=== PATIENT | female | born 1985 | race Hispanic/Latino ===

== ENCOUNTER 2023-08-23 05:51 | Emergency (ER) | payer BC ==
[2023-08-23] MEDS ORDERED: Morphine 4 MG/ML VIAL ONE (06:28)
[2023-08-23] MEDS ORDERED: Ondansetron PF 4 MG/2 ML Vial ONE ×3 (06:28→11:59)
[2023-08-23 06:37] LABS: #Basophils 0.1 thou/uL (0.0-0.2); #Eosinphils 0.1 thou/uL (0.0-0.7); #Monocytes 0.5 thou/uL (0.11-0.59); #Neutrophils 5.3 thou/uL (1.40-6.50); %Basophils 0.7 % (0.0-1.0); %Eosinophils 0.9 % (0.0-10.0); %Lymphocytes 26.1 % (21.0-51.0); %Monocytes 6.3 % (0.0-10.0); %Neutrophils 65.9 % (42.0-75.0); Hematocrit 35.4 % (36.0-47.0); Hemoglobin 9.9 g/dL (12.0-16.0); Mean Corpuscular Hemoglobin 19.5 pg (27.0-31.0); Mean Corpuscular Volume 69.7 fl (78.0-98.0); Mean Platelet Volume 11.1 fL (7.4-10.4); Platelet Count 166 10x3/uL (130-400); RBC Distribution Width 17.1 % (11.5-14.5); Red Blood Cell (RBC) Count 5.08 mill/uL (4.20-5.40); White Blood Cell (WBC) Count 8.1 10x3/uL (4.8-10.8)
[2023-08-23 06:44] LABS: BHCG - Serum Negative (NEGATIVE); Pregs Control Background? CLEAR/WHITE (CLR/WHITE); Pregs Control Bar Appear? YES (CONTROL BAR)
[2023-08-23 07:04] LABS: ALT (SGPT) 34 U/L (8-55); AST (SGOT) 102 U/L (5-34); Albumin 3.9 g/dL (3.5-5.0); Alkaline Phosphatase 127 U/L (40-110); BUN (Urea Nitrogen) 18 mg/dL (7.0-18.7); Bilirubin, Total 0.9 mg/dL (0.2-1.2); Calc. Creatinine Clearance 0 mL/min (70-130); Carbon Dioxide 27 mmol/L (22-29); Estimated GFR 113; Globulin 3.3 g/dL (2.4-3.5); Glucose 84 mg/dL (70-105); Lipase 30 U/L (8-78); Protein, Total 7.2 g/dL (6.0-8.3)
[2023-08-23 07:06] LABS: Troponin I Less than 0.010 ng/mL (< 0.028)
[2023-08-23 07:14] LABS: Anion Gap 10 mmol/L (10-20); Chloride 107 mmol/L (98-107); Potassium 3.3 mmol/L (3.5-5.1); Sodium 141 mmol/L (136-145)
[2023-08-23 07:21] LABS: CellaVision Operator ID LAB.NR; Hypochromia MODERATE=16-30 cells HPF (0-5); Platelet Adequacy Comment Platelets Normal; Polychromasia SLIGHT = 2-3 cells HPF (0-2)
[2023-08-23] MEDS ORDERED: Sodium Chloride 0.9% 100 ML ONE (07:58)
[2023-08-23] MEDS ORDERED: Piperacillin/Tazobactam 3.375 GM VIAL ONE (07:58)
[2023-08-23] MEDS ORDERED: Bupivacaine 0.25% HCL 30 ML VIAL ONE ×2 (10:56→11:38)
[2023-08-23] MEDS ORDERED: EPINEPHrine 1 MG/ML VIAL ONE ×2 (10:56→11:37)
[2023-08-23] MEDS ORDERED: PROPOFOL 0 ML ONE (11:02)
[2023-08-23] MEDS ORDERED: fentaNYL PF 100 MCG/2 ML SYRINGE ONE (11:02)
[2023-08-23] MEDS ORDERED: Lidocaine 1% PF 5 ML VIAL ONE ×2 (11:05→11:17)
[2023-08-23] MEDS ORDERED: Rocuronium Bromide 10 MG/ML (10ML VIAL) ONE ×2 (11:05→11:17)
[2023-08-23] MEDS ORDERED: NEOSTIGMINE 3 MG/3 ML SYR 3 MG/3 ML SYRINGE ONE ×2 (11:17→12:36)
[2023-08-23] MEDS ORDERED: PROPOFOL 200 MG/20 ML VIAL ONE (11:17)
[2023-08-23] MEDS ORDERED: Glycopyrrolate 0.2 MG/ML 5 ML SYRINGE ONE ×2 (11:17→12:36)
[2023-08-23] MEDS ORDERED: Ketorolac Tromethamine 30 MG/ML VIAL ONE ×2 (11:17→11:59)
[2023-08-23] MEDS ORDERED: Dexamethasone 20 MG/5 ML VIAL ONE (11:17)
[2023-08-23] MEDS ORDERED: CEFAZOLIN 1 GM VIAL ONE (11:53)
[2023-08-23] MEDS ORDERED: Dexamethasone 4 mg/ml Vial ONE (11:59)
[2023-08-23] MEDS ORDERED: PROPOFOL 20 ML ONE (12:39)
[2023-08-23] MEDS ORDERED: traMADol HCl 50 MG TAB PO PRN (12:52)
[2023-08-23] MEDS ORDERED: Ibuprofen 600 MG TAB PO PRN (12:52)
[2023-08-23] MEDS ORDERED: fentaNYL 50 mcg/mL 1 mL Vial ONE ×2 (13:21→13:38)
[2023-08-23] MEDS ORDERED: Albuterol HFA (OR) 200 PUFF INH ONE (13:32)
[2023-08-23] MEDS ORDERED: HYDROcodone/Acetaminophen 5/325 mg Tablet ONE (13:50)
[2023-08-23] MEDS ORDERED: Acetaminophen 500 MG TAB PO SCH (18:00)
== END 2023-08-23 09:16 | disposition admitted as inpatient to this hospital (09) ==
LOC: ERS 05:51
DX: K80.00 Calculus of gallbladder with acute cholecystitis without obstruction (principal)
CPT/HCPCS: 71045; 76705; 83690; 84484; 84703; 88304; 93005; 96365; 96375; C1889; J0171; J0690; J1100; J1885; J2270; J2405; J2543; J2704; J3010; J3490; S0020

== ENCOUNTER 2023-08-24 00:41 | Inpatient (IN) | payer BC ==
[2023-08-24] MEDS ORDERED: Morphine 4 MG/ML VIAL ONE ×2 (01:17→03:14)
[2023-08-24] MEDS ORDERED: Ondansetron PF 4 MG/2 ML Vial ONE (01:17)
[2023-08-24 01:40] LABS: #Monocytes 0.6 thou/uL (0.11-0.59); #Neutrophils 6.4 thou/uL (1.40-6.50); %Basophils 0.1 % (0.0-1.0); %Lymphocytes 5.9 % (21.0-51.0); %Monocytes 8.4 % (0.0-10.0); %Neutrophils 85.3 % (42.0-75.0); Hematocrit 36.8 % (36.0-47.0); Hemoglobin 10.4 g/dL (12.0-16.0); Mean Corpuscular HGB CONC 28.3 g/dL (32.0-36.0); Mean Corpuscular Hemoglobin 19.6 pg (27.0-31.0); Mean Corpuscular Volume 69.3 fl (78.0-98.0); Mean Platelet Volume 11.1 fL (7.4-10.4); Platelet Count 184 10x3/uL (130-400); RBC Distribution Width 17.1 % (11.5-14.5); Red Blood Cell (RBC) Count 5.31 mill/uL (4.20-5.40); White Blood Cell (WBC) Count 7.5 10x3/uL (4.8-10.8)
[2023-08-24 02:10] LABS: ALT (SGPT) 270 U/L (8-55); AST (SGOT) 438 U/L (5-34); Albumin 3.6 g/dL (3.5-5.0); Alkaline Phosphatase 206 U/L (40-110); Anion Gap 12 mmol/L (10-20); BUN (Urea Nitrogen) 14 mg/dL (7.0-18.7); Bilirubin, Total 2.1 mg/dL (0.2-1.2); Calc. Creatinine Clearance 0 mL/min (70-130); Calcium 8.9 mg/dL (7.8-10.44); Carbon Dioxide 27 mmol/L (22-29); Chloride 104 mmol/L (98-107); Estimated GFR 114; Globulin 3.8 g/dL (2.4-3.5); Glucose 140 mg/dL (70-105); Potassium 4.2 mmol/L (3.5-5.1); Protein, Total 7.4 g/dL (6.0-8.3); Sodium 139 mmol/L (136-145)
[2023-08-24 02:20] LABS: Lipase 7413 U/L (8-78)
[2023-08-24 02:21] LABS: Bacteria/HPF None Seen HPF (None Seen); Bilirubin Negative (Negative); Blood, Urine Negative (Negative); CAUTI Indications for Culture Pelvic or flank pain; Clarity Clear (Clear); Glucose, Urine (Dipstick) Normal (Negative); Ketone, Urine Negative (Negative); Leukocyte Negative Leu/uL (Negative); Nitrite Negative (Negative); Protein, Urine (Dipstick) Negative (Neg-Trace); RBC/HPF 0-3 HPF (0-3); Specific Gravity, Urine 1.015 (1.002-1.036); Urobilinogen Normal mg/dL (Less than 2); WBC/HPF 0-3 HPF (0-3); pH, Urine 6.5 (5.0-9.0)
[2023-08-24 02:23] LABS: Urine Culture Reflex No No
[2023-08-24] MEDS ORDERED: Promethazine HCl 25 MG/ML VIAL IM PRN (04:49)
[2023-08-24] MEDS ORDERED: Glucagon 1 MG/ML KIT IM PRN (04:49)
[2023-08-24] MEDS ORDERED: Dextrose 5% in Water 1,000 ML IV PRN (04:49)
[2023-08-24] MEDS ORDERED: Dextrose 50% Abboject 50 ML SYRINGE SLOW IVP PRN (04:49)
[2023-08-24] MEDS ORDERED: hydrALAZINE 20 MG/ML VIAL SLOW IVP PRN (04:49)
[2023-08-24] MEDS ORDERED: Cyclobenzaprine 10 MG TAB PO PRN (04:51)
[2023-08-24] MEDS ORDERED: Sodium Chloride 0.9% 1,000 ML IV SCH (05:00)
[2023-08-24] MEDS: Sodium Chloride 0.9% 1,000 ML IV SCH ×4 (06:44→23:22)
[2023-08-24] MEDS: traMADol HCl 50 MG TAB PO SCH ×4 (06:45→23:21)
[2023-08-24 06:49] VITALS: BMI 43.4
[2023-08-24] MEDS: Morphine 2 MG/ML VIAL SLOW IVP PRN ×3 (07:21→20:56)
[2023-08-24] MEDS ORDERED: Famotidine/PF 20 mg/2ml Vial SLOW IVP SCH (09:00)
[2023-08-24] MEDS: Senokot S 8.6-50 MG TAB PO SCH ×2 (09:15→20:59)
[2023-08-24] MEDS ORDERED: Iopamidol-370 76% 500 ML MDV (1 ML CHARGE) ONE (11:40)
[2023-08-24 12:33] LABS: #Monocytes 0.6 thou/uL (0.11-0.59); #Neutrophils 6.1 thou/uL (1.40-6.50); %Basophils 0.3 % (0.0-1.0); %Eosinophils 0.1 % (0.0-10.0); %Lymphocytes 13.6 % (21.0-51.0); %Monocytes 7.1 % (0.0-10.0); %Neutrophils 78.6 % (42.0-75.0); Hematocrit 31.6 % (36.0-47.0); Hemoglobin 8.9 g/dL (12.0-16.0); Mean Corpuscular HGB CONC 28.2 g/dL (32.0-36.0); Mean Corpuscular Hemoglobin 19.7 pg (27.0-31.0); Mean Corpuscular Volume 69.9 fl (78.0-98.0); Mean Platelet Volume 10.7 fL (7.4-10.4); Platelet Count 154 10x3/uL (130-400); RBC Distribution Width 17.1 % (11.5-14.5); Red Blood Cell (RBC) Count 4.52 mill/uL (4.20-5.40); White Blood Cell (WBC) Count 7.8 10x3/uL (4.8-10.8)
[2023-08-24 13:01] LABS: Anisocytosis SLIGHT = 6-15 cells HPF (0-5); Burr Cells SLIGHT = 2-5 cells HPF (0-1); CellaVision Operator ID LAB.MJL; Hypochromia SLIGHT = 6-15 cells HPF (0-5); Microcytosis SLIGHT = 6-15 cells HPF (0-5); Ovalocytes SLIGHT = 2-5 cells HPF (0-1); Platelet Adequacy Comment Platelets Normal; Polychromasia SLIGHT = 2-3 cells HPF (0-2)
[2023-08-24 13:13] LABS: ALT (SGPT) 189 U/L (8-55); AST (SGOT) 200 U/L (5-34); Albumin 3.1 g/dL (3.5-5.0); Alkaline Phosphatase 165 U/L (40-110); Anion Gap 9 mmol/L (10-20); BUN (Urea Nitrogen) 11 mg/dL (7.0-18.7); Bilirubin, Total 0.9 mg/dL (0.2-1.2); Calc. Creatinine Clearance 270 mL/min (70-130); Calcium 8.2 mg/dL (7.8-10.44); Carbon Dioxide 25 mmol/L (22-29); Chloride 107 mmol/L (98-107); Estimated GFR 120; Glucose 108 mg/dL (70-105); Potassium 3.6 mmol/L (3.5-5.1); Protein, Total 6.1 g/dL (6.0-8.3); Sodium 137 mmol/L (136-145)
[2023-08-24 13:26] LABS: Lipase 1517 U/L (8-78)
[2023-08-24] MEDS: Ondansetron PF 4 MG/2 ML Vial IVP PRN ×2 (14:56→20:56)
[2023-08-24] MEDS: Ketorolac Tromethamine 30 MG/ML VIAL IVP SCH ×2 (17:25→23:22)
[2023-08-24] MEDS: Pantoprazole 40 MG VIAL IVP SCH (20:59)
[2023-08-25] MEDS: traMADol HCl 50 MG TAB PO SCH ×4 (05:32→23:34)
[2023-08-25] MEDS: Ketorolac Tromethamine 30 MG/ML VIAL IVP SCH ×3 (05:33→16:52)
[2023-08-25] MEDS: Sodium Chloride 0.9% 1,000 ML IV SCH ×2 (05:33→15:43)
[2023-08-25 06:57] LABS: #Monocytes 0.8 thou/uL (0.11-0.59); #Neutrophils 6.6 thou/uL (1.40-6.50); %Basophils 0.2 % (0.0-1.0); %Eosinophils 0.1 % (0.0-10.0); %Lymphocytes 12.7 % (21.0-51.0); %Neutrophils 77.8 % (42.0-75.0); Hematocrit 28.6 % (36.0-47.0); Hemoglobin 8.1 g/dL (12.0-16.0); Mean Corpuscular HGB CONC 28.3 g/dL (32.0-36.0); Mean Corpuscular Hemoglobin 19.9 pg (27.0-31.0); Mean Corpuscular Volume 70.1 fl (78.0-98.0); Mean Platelet Volume 11.4 fL (7.4-10.4); Platelet Count 147 10x3/uL (130-400); RBC Distribution Width 17.4 % (11.5-14.5); Red Blood Cell (RBC) Count 4.08 mill/uL (4.20-5.40); White Blood Cell (WBC) Count 8.5 10x3/uL (4.8-10.8)
[2023-08-25 07:10] LABS: INR-International Normal Ratio 1.2; PTT 33.5 sec (22.9-36.1); Prothrombin Time 15.6 sec (12.0-14.7)
[2023-08-25 07:16] LABS: Anion Gap 7 mmol/L (10-20); BUN (Urea Nitrogen) 12 mg/dL (7.0-18.7); Calc. Creatinine Clearance 243 mL/min (70-130); Calcium 7.9 mg/dL (7.8-10.44); Carbon Dioxide 23 mmol/L (22-29); Chloride 110 mmol/L (98-107); Estimated GFR 117; Glucose 85 mg/dL (70-105); Potassium 3.2 mmol/L (3.5-5.1); Sodium 137 mmol/L (136-145)
[2023-08-25 07:42] LABS: ALT (SGPT) 136 U/L (8-55); AST (SGOT) 96 U/L (5-34); Bilirubin, Total 0.8 mg/dL (0.2-1.2); Lipase 564 U/L (8-78)
[2023-08-25] MEDS: Pantoprazole 40 MG VIAL IVP SCH ×2 (08:10→21:09)
[2023-08-25] MEDS: Senokot S 8.6-50 MG TAB PO SCH ×2 (08:11→21:09)
[2023-08-26] MEDS: traMADol HCl 50 MG TAB PO SCH ×3 (06:14→17:42)
[2023-08-26 06:57] LABS: #Eosinphils 0.1 thou/uL (0.0-0.7); #Monocytes 0.8 thou/uL (0.11-0.59); #Neutrophils 5.3 thou/uL (1.40-6.50); %Basophils 0.3 % (0.0-1.0); %Eosinophils 1.4 % (0.0-10.0); %Lymphocytes 20.2 % (21.0-51.0); %Monocytes 10.2 % (0.0-10.0); %Neutrophils 67.6 % (42.0-75.0); Hemoglobin 7.5 g/dL (12.0-16.0); Mean Corpuscular HGB CONC 27.8 g/dL (32.0-36.0); Mean Corpuscular Hemoglobin 19.6 pg (27.0-31.0); Mean Corpuscular Volume 70.7 fl (78.0-98.0); Mean Platelet Volume 11.6 fL (7.4-10.4); Platelet Count 136 10x3/uL (130-400); RBC Distribution Width 17.7 % (11.5-14.5); Red Blood Cell (RBC) Count 3.82 mill/uL (4.20-5.40); White Blood Cell (WBC) Count 7.8 10x3/uL (4.8-10.8)
[2023-08-26 07:21] LABS: ALT (SGPT) 83 U/L (8-55); AST (SGOT) 42 U/L (5-34); Albumin 2.7 g/dL (3.5-5.0); Alkaline Phosphatase 116 U/L (40-110); Anion Gap 9 mmol/L (10-20); BUN (Urea Nitrogen) 9 mg/dL (7.0-18.7); Bilirubin, Total 0.7 mg/dL (0.2-1.2); Calc. Creatinine Clearance 239 mL/min (70-130); Calcium 7.9 mg/dL (7.8-10.44); Carbon Dioxide 27 mmol/L (22-29); Chloride 107 mmol/L (98-107); Estimated GFR 117; Globulin 2.9 g/dL (2.4-3.5); Glucose 74 mg/dL (70-105); Lipase 169 U/L (8-78); Potassium 2.9 mmol/L (3.5-5.1); Protein, Total 5.6 g/dL (6.0-8.3); Sodium 140 mmol/L (136-145)
[2023-08-26 08:14] LABS: CellaVision Operator ID LAB.GE; Hypochromia SLIGHT = 6-15 cells HPF (0-5); Microcytosis MODERATE=15-30 cells HPF (0-5); Platelet Adequacy Comment Platelets Normal; Polychromasia SLIGHT = 2-3 cells HPF (0-2)
[2023-08-26] MEDS: Pantoprazole 40 MG VIAL IVP SCH ×2 (09:24→21:24)
[2023-08-26] MEDS: traMADol HCl 50 MG TAB PO PRN (09:24)
[2023-08-26] MEDS: Senokot S 8.6-50 MG TAB PO SCH ×2 (09:24→21:24)
[2023-08-26] MEDS: Potassium Chloride 20 MEQ in Premix 1 BAG IVPB SCH ×2 (09:29→12:06)
[2023-08-26 09:52] LABS: Magnesium 1.7 mg/dL (1.6-2.6)
[2023-08-26 09:53] LABS: Magnesium 1.8 mg/dL (1.6-2.6)
[2023-08-26 10:03] LABS: Phosphorus 1.4 mg/dL (2.3-4.7)
[2023-08-26] MEDS ORDERED: Magnesium 2 GM/50 ML(in water) 2 GM in Premix 1 BAG IVPB SCH (10:30)
[2023-08-26] MEDS ORDERED: Electrolyte Replacement Protocol 1 EACH FS SCH (10:30)
[2023-08-26] MEDS ORDERED: Electrolyte Replacement Protocol FS PRN (10:30)
[2023-08-26] MEDS ORDERED: Potassium Phosphate 22 MMOL in Sodium Chloride 0.9% 250 ML 250 ML IVPB SCH (11:30)
[2023-08-26 21:07] LABS: Anion Gap 9 mmol/L (10-20); BUN (Urea Nitrogen) 7 mg/dL (7.0-18.7); Calc. Creatinine Clearance 239 mL/min (70-130); Calcium 8.2 mg/dL (7.8-10.44); Carbon Dioxide 26 mmol/L (22-29); Chloride 108 mmol/L (98-107); Estimated GFR 117; Glucose 83 mg/dL (70-105); Magnesium 2.1 mg/dL (1.6-2.6); Phosphorus 2.4 mg/dL (2.3-4.7); Potassium 3.8 mmol/L (3.5-5.1); Sodium 139 mmol/L (136-145)
[2023-08-26] MEDS ORDERED: Magnesium Citrate 300 ML BOT PO SCH (22:15)
[2023-08-27] MEDS: traMADol HCl 50 MG TAB PO SCH ×2 (01:02→07:26)
[2023-08-27 06:19] LABS: #Eosinphils 0.2 thou/uL (0.0-0.7); #Monocytes 0.4 thou/uL (0.11-0.59); #Neutrophils 3.1 thou/uL (1.40-6.50); %Basophils 0.6 % (0.0-1.0); %Eosinophils 2.9 % (0.0-10.0); %Lymphocytes 28.7 % (21.0-51.0); %Monocytes 8.4 % (0.0-10.0); %Neutrophils 59.2 % (42.0-75.0); Hematocrit 26.8 % (36.0-47.0); Hemoglobin 7.6 g/dL (12.0-16.0); Mean Corpuscular HGB CONC 28.4 g/dL (32.0-36.0); Mean Corpuscular Volume 70.5 fl (78.0-98.0); Mean Platelet Volume 11.7 fL (7.4-10.4); Platelet Count 157 10x3/uL (130-400); RBC Distribution Width 17.7 % (11.5-14.5); White Blood Cell (WBC) Count 5.3 10x3/uL (4.8-10.8)
[2023-08-27 06:45] LABS: ALT (SGPT) 65 U/L (8-55); AST (SGOT) 27 U/L (5-34); Albumin 2.9 g/dL (3.5-5.0); Alkaline Phosphatase 110 U/L (40-110); Anion Gap 11 mmol/L (10-20); BUN (Urea Nitrogen) 6 mg/dL (7.0-18.7); Bilirubin, Total 0.6 mg/dL (0.2-1.2); Calc. Creatinine Clearance 256 mL/min (70-130); Calcium 8.2 mg/dL (7.8-10.44); Carbon Dioxide 25 mmol/L (22-29); Chloride 105 mmol/L (98-107); Estimated GFR 118; Globulin 3.1 g/dL (2.4-3.5); Glucose 76 mg/dL (70-105); Magnesium 2.1 mg/dL (1.6-2.6); Phosphorus 2.3 mg/dL (2.3-4.7); Potassium 3.5 mmol/L (3.5-5.1); Sodium 137 mmol/L (136-145)
[2023-08-27 07:50] VITALS: TEMP 99
[2023-08-27 07:51] VITALS: BP 101/58
[2023-08-27] MEDS: traMADol HCl 50 MG TAB PO PRN (08:11)
[2023-08-27] MEDS: Pantoprazole 40 MG VIAL IVP SCH (08:11)
[2023-08-27] MEDS: Senokot S 8.6-50 MG TAB PO SCH (08:11)
[2023-08-27] MEDS ORDERED: Potassium Chloride 20 MEQ TAB PO SCH (09:00)
== END 2023-08-27 11:15 | disposition home or self-care (01) | DRG 393 ==
LOC: ERS 00:41 → SURG A 04:52
PROVIDERS: ADMIT Surgery; ATTEND Surgery
DX: K91.89 Other postprocedural complications and disorders of digestive system (principal); K85.90 Acute pancreatitis without necrosis or infection, unspecified; Z98.890 Other specified postprocedural states; Z90.49 Acquired absence of other specified parts of digestive tract; Z79.899 Other long term (current) drug therapy
CPT/HCPCS: 36415; 71045; 74177; 74181; 76705; 80048; 80053; 81001; 82247; 83690; 83735; 84100; 84450; 84460; 84484; 84703; 85025; 85610; 85730; 88304; 93005; 96361; 96365; 96374; 96375; 96376; C1889; C9113; J0171; J0690; J1100; J1650; J1885; J2270; J2272; J2405; J2543; J2704; J3010; J3475; J3480; J3490; J7050; Q9967; S0020; S0028

== ENCOUNTER 2024-07-06 04:58 | Emergency (ER) | payer BC ==
[2024-07-06 05:28] LABS: BHCG - Serum Negative (NEGATIVE); Pregs Control Background? CLEAR/WHITE (CLR/WHITE); Pregs Control Bar Appear? YES (CONTROL BAR)
[2024-07-06] MEDS ORDERED: Ketorolac Tromethamine 30 MG (1 mL) VIAL ONE (05:33)
[2024-07-06 05:35] LABS: ALT (SGPT) 10 U/L (8-55); AST (SGOT) 14 U/L (5-34); Albumin 3.1 g/dL (3.5-5.0); Alkaline Phosphatase 85 U/L (40-110); Anion Gap 13 mmol/L (10-20); BUN (Urea Nitrogen) 16 mg/dL (7.0-18.7); Bilirubin, Total 0.3 mg/dL (0.2-1.2); Calc. Creatinine Clearance 0 mL/min (70-130); Calcium 8.7 mg/dL (7.8-10.44); Carbon Dioxide 26 mmol/L (22-29); Chloride 108 mmol/L (98-107); Estimated GFR 115; Glucose 90 mg/dL (70-105); Lipase 16 U/L (8-78); Potassium 3.5 mmol/L (3.5-5.1); Protein, Total 7.1 g/dL (6.0-8.3); Sodium 143 mmol/L (136-145)
[2024-07-06 06:20] LABS: #Basophils 0.04 10x3/uL (0.0-0.2); %Basophils 0.7 % (0.0-1.0); %Lymphocytes 37.8 % (21.0-51.0); %Monocytes 5.3 % (0.0-10.0); Hematocrit 30.7 % (36.0-47.0); Mean Corpuscular HGB CONC 26.1 g/dL (32.0-36.0); Mean Corpuscular Hemoglobin 17.7 pg (27.0-31.0); Mean Corpuscular Volume 68.1 fL (78.0-98.0); Mean Platelet Volume 9.7 fL (7.4-10.4); Platelet Count 287 10x3/uL (130-400); RBC Distribution Width 20.3 % (11.5-14.5); Red Blood Cell (RBC) Count 4.51 mill/uL (4.20-5.40)
[2024-07-06 07:24] LABS: Eosinophils 1 % (0-10); Hypochromia SLIGHT = 6-15 cells HPF (0-5); Large Platelets 12.9 % (0-5); Lymphocytes 44 % (21-51); Monocytes 1 % (0-10); Neutrophil 52 % (42-75); Platelet Adequacy Comment Platelets Normal
[2024-07-06] MEDS ORDERED: Iopamidol 370 76% 100 ML VIAL ONE (09:32)
== END 2024-07-06 06:58 | disposition left against medical advice (07) ==
LOC: ERS 04:58
DX: R10.84 Generalized abdominal pain (principal); Z98.84 Bariatric surgery status
CPT/HCPCS: 36415; 74177; 80053; 83690; 84703; 85025; 96374; J1885; Q9967

== ENCOUNTER 2025-09-05 02:31 | Emergency (ER) | payer BC ==
[2025-09-05 03:03] LABS: Glucose, Urine (Dipstick) Negative (Negative); Leukocyte Negative (Negative); Protein, Urine (Dipstick) Negative (Neg-Trace); Specific Gravity, Urine Less/Equal 1.005 (1.005-1.030)
[2025-09-05 03:08] LABS: Bacteria/HPF None Seen HPF (None Seen); CAUTI Indications for Culture Alt mental st,lethar; RBC/HPF None Seen HPF (0-3); WBC/HPF 0-3 HPF (0-3)
[2025-09-05 03:19] LABS: Urine Culture Reflex No No
[2025-09-05] MEDS ORDERED: HYDROcodone/Acetaminophen 10/325 mg Tablet ONE (04:45)
== END 2025-09-05 05:11 | disposition home or self-care (01) ==
LOC: ERS 02:31
DX: S83.91XA Sprain of unspecified site of right knee, initial encounter (principal); S39.012A Strain of muscle, fascia and tendon of lower back, initial encounter; S29.012A Strain of muscle and tendon of back wall of thorax, initial encounter; W01.0XXA Fall on same level from slipping, tripping and stumbling without subsequent striking against object, initial encounter
CPT/HCPCS: 72072; 72100; 81001; 96372; 99283

== ENCOUNTER 2025-09-09 00:41 | Emergency (ER) | payer BC ==
[2025-09-09 05:18] LABS: #Basophils 0.05 10x3/uL (0.0-0.2); #Eosinophils 0.06 10x3/uL (0.0-0.7); #Monocytes 0.37 10x3/uL (0.11-0.59); #Neutrophils 2.85 10x3/uL (1.40-6.50); %Basophils 0.9 % (0.0-1.0); %Eosinophils 1.1 % (0.0-10.0); %Lymphocytes 37.5 % (21.0-51.0); %Monocytes 6.9 % (0.0-10.0); %Neutrophils 53.4 % (42.0-75.0); Hematocrit 31.2 % (36.0-47.0); Hemoglobin 8.1 g/dL (12.0-16.0); Mean Corpuscular Hemoglobin 16.9 pg (27.0-31.0); Mean Corpuscular Volume 65.1 fL (78.0-98.0); Platelet Count 200 10x3/uL (130-400); Red Blood Cell (RBC) Count 4.79 mill/uL (4.20-5.40); White Blood Cell (WBC) Count 5.34 10x3/uL (4.8-10.8)
[2025-09-09 05:23] LABS: ALT (SGPT) 15 U/L (Less than 34); AST (SGOT) 24 U/L (11-34); Albumin 3.6 g/dL (3.1-4.5); Alkaline Phosphatase 92 U/L (40-110); Anion Gap 5 mmol/L (10-20); BUN (Urea Nitrogen) 15 mg/dL (7.0-18.7); Bilirubin, Total 0.5 mg/dL (0.3-1.2); Calc. Creatinine Clearance 0 mL/min (70-130); Calcium 8.7 mg/dL (7.8-10.44); Carbon Dioxide 24 mmol/L (22-29); Chloride 111 mmol/L (98-107); Globulin 3.4 g/dL (2.4-3.5); Glucose 98 mg/dL (70-105); Lipase 16 U/L (8-78); Potassium 3.3 mmol/L (3.5-5.1); Sodium 137 mmol/L (136-145)
[2025-09-09 05:24] LABS: BHCG - Serum Negative (NEGATIVE); Pregs Control Background? CLEAR/WHITE (CLR/WHITE); Pregs Control Bar Appear? YES (CONTROL BAR)
== END 2025-09-09 07:49 | disposition home or self-care (01) ==
LOC: ERS 00:41
DX: S80.211A Abrasion, right knee, initial encounter (principal); M54.50 Low back pain, unspecified; W18.30XA Fall on same level, unspecified, initial encounter
CPT/HCPCS: 70450; 71260; 72125; 74177; 80053; 83690; 84703; 85025; 96374